=== PATIENT | male | born 1945 | race Caucasian/White ===

== ENCOUNTER 2017-04-25 08:42 | Inpatient (IN) | payer OTHER ==
[~2017-04-25] VITALS: Ht 175.3 cm; Wt 99.2 kg
[2017-04-25] MEDS ORDERED: SODIUM CHLORIDE 0.9% 1L BAG IV* STA (08:56)
[2017-04-25] MEDS ORDERED: CEFEPIME 2GM/50 ML (PMX) 50 ML IVPB STA (08:56)
[2017-04-25] MEDS ORDERED: VANCOMYCIN 1 GM (PMX) 250 ML IVPB ONE (09:00)
[2017-04-25 09:42] LABS: BASOPHIL # 0.1 10^3/ul (0.0-0.1); BASOPHILS % 0.6 % (0.0-2.0); EOSINOPHILS # 0.2 10^3/ul (0.0-0.5); EOSINOPHILS % 1.4 % (0.0-7.0); HEMATOCRIT 48.4 % (42.0-52.0); HEMOGLOBIN 16.6 g/dl (14.0-18.0); LYMPHOCYTES # 1.6 10^3/ul (0.8-2.9); LYMPHOCYTES % 15.3 % (15.0-51.0); MEAN CORPUSCULAR HEMOGLOBIN 32.4 pg (29.0-33.0); MEAN CORPUSCULAR HGB CONC 34.3 g/dl (32.0-37.0); MEAN CORPUSCULAR VOLUME 94.5 fl (82.0-101.0); MEAN PLATELET VOLUME 10.4 fl (7.4-10.4); MONOCYTES % 9.8 % (0.0-11.0); NEUTROPHIL # 7.7 10^3/ul (1.6-7.5); NEUTROPHILS % 72.6 % (39.0-77.0); PLATELET COUNT 227 10^3/UL (140-415); RED BLOOD COUNT 5.12 10^6/ul (4.70-6.10); RED CELL DISTRIBUTION WIDTH 14.5 % (11.5-14.5); WHITE BLOOD COUNT 10.5 10^3/ul (4.8-10.8)
--- NOTE | 2017-04-25 09:50 | RADRPT ---
PROCEDURE: XR Chest. CLINICAL INDICATION: Sepsis TECHNIQUE: AP Portable chest. COMPARISON: No pertinent prior examinations were submitted for comparison. FINDINGS: Lordotic view was obtained. The cardiomediastinal silhouette is within normal limits. The aortic arch is calcified. The right he midiaphragm is elevated. There are views bilateral reticular densities.. No pleural effusion or pneu mothorax is seen. Bilateral acromioclavicular joint DJD and right shoulder calcific tendinosis are visualized. IMPRESSION: Elevated right hemidiaphragm. Diffuse interstitial infiltrates or edema. Physician Mary Jo Date Time Electronically viewed and signed by Physician Mary Jo on 04/25/2017 09:50 CS/
[2017-04-25 10:06] LABS: INR 0.95; PARTIAL THROMBOPLASTIN TIME 29.9 Sec (25.0-35.0); PROTIME 12.7 Sec (12.2-14.2)
[2017-04-25 10:07] LABS: ADD UMIC NO; UR ASCORBIC ACID NEGATIVE (NEGATIVE); UR BILIRUBIN (Dip) NEGATIVE (NEGATIVE); UR BLOOD (Dip) NEGATIVE (NEGATIVE); UR CLARITY CLEAR (CLEAR); UR COLOR YELLOW (YELLOW); UR GLUCOSE (Dip) 2+ mg/dL (NEGATIVE); UR KETONES (Dip) NEGATIVE (NEGATIVE); UR LEUKOCYTE ESTERASE (Dip) NEGATIVE Leu/ul (NEGATIVE); UR NITRITE (Dip) NEGATIVE (NEGATIVE); UR SPECIFIC GRAVITY (Dip) 1.017 (1.003-1.030); UR TOTAL PROTEIN (Dip) NEGATIVE (NEGATIVE); UR UROBILINOGEN (Dip) NEGATIVE (NEGATIVE)
[2017-04-25 10:10] LABS: ALANINE AMINOTRANSFERASE 43 IU/L (13-69); ALBUMIN 4.3 g/dl (3.3-4.9); ALBUMIN/GLOBULIN RATIO 0.97; ALKALINE PHOSPHATASE 143 IU/L (42-121); ANION GAP 17 (8-16); ASPARTATE AMINO TRANSFERASE 45 IU/L (15-46); BILIRUBIN,INDIRECT 0.3 mg/dl (0-1.1); BILIRUBIN,TOTAL 0.3 mg/dl (0.2-1.3); BLOOD UREA NITROGEN 14 mg/dl (7-20); CALCIUM 9.9 mg/dl (8.4-10.2); CARBON DIOXIDE 29 mmol/L (21-31); CHLORIDE 101 mmol/L (97-110); CREATININE 0.69 mg/dl (0.61-1.24); GLUCOSE 202 mg/dl (70-220); POTASSIUM 4.8 mmol/L (3.5-5.1); SODIUM 142 mmol/L (135-144); TOTAL PROTEIN 8.7 g/dl (6.1-8.1)
[2017-04-25 10:24] LABS: TROPONIN-I < 0.012 ng/ml (0.00-0.12)
[2017-04-25] MEDS ORDERED: ACETAMINOPHEN 325 MG TAB PO PRN ×2 (10:30→12:00)
[2017-04-25] MEDS ORDERED: ONDANSETRON 4 MG INJ IV PRN ×2 (10:30→12:00)
[2017-04-25] MEDS ORDERED: LANT3I SC (11:00)
[2017-04-25] MEDS ORDERED: ZOLP10TA5 PO (11:00)
[2017-04-25] MEDS ORDERED: MIRT7.5T8 PO (11:01)
[2017-04-25] MEDS ORDERED: METF1000 PO (11:01)
[2017-04-25] MEDS ORDERED: PIOG45TA6 PO (11:02)
[2017-04-25] MEDS ORDERED: QUET25TA33 PO ×2 (11:03)
[2017-04-25] MEDS ORDERED: SERT50TA PO (11:04)
[2017-04-25] MEDS ORDERED: GLYB5TAB3 PO (11:05)
[2017-04-25] MEDS ORDERED: ERGO2000 PO (11:07)
[2017-04-25] MEDS ORDERED: HYDR-902 PO (11:08)
[2017-04-25] MEDS ORDERED: ASPI-664 PO (11:08)
[2017-04-25] MEDS ORDERED: GABA300C16 PO (11:09)
[2017-04-25] MEDS ORDERED: CELE100C PO (11:09)
[2017-04-25] MEDS ORDERED: LOSA25TA5 PO (11:10)
[2017-04-25] MEDS ORDERED: DOCUSATE SODIUM 100 MG CAP PO PRN (12:00)
[2017-04-25] MEDS ORDERED: ACETAMINOPHEN 650 MG SUPP PR PRN (12:00)
[2017-04-25] MEDS ORDERED: ALBUTEROL/IPRATROPIUM (NEB) 3 ML AMP HHN PRN (12:00)
[2017-04-25] MEDS ORDERED: VANCOMYCIN IV PER PHARMACY XX SCH (12:00)
[2017-04-25] MEDS ORDERED: NACL 0.9% 3 ML SYG IV SCH (12:00)
[2017-04-25] MEDS: INSULIN ASPART [NOVOLOG] 3 ML PEN SC SCH ×3 (12:00→21:45)
--- NOTE | 2017-04-25 12:04 | HP ---
Date/Time of Note Date/Time of Note DATE: 04/25/17 TIME: 11:57 Assessment/Plan VTE Prophylaxis VTE Prophylaxis Intervention: LMWH Assessment/Plan Chief Complaint/Hosp Course 72-year-old male, who was transferred from assisted living facility for evaluation of cough and congestion that started early this morning. 1. Pneumonia, likely community-acquired. Chest x-ray reviewed. -Admit as inpatient -We will start patient on Levaquin+Vanco, [id number] and as needed bronchodilators. -Obtain sputum and blood culture. 2. Sepsis with #1. -Repeat lactate. -Continue IVFs, borad-spectrum abx and follow-up with pancultures. 3. Essential hypertension. Stable. -Resume home medications. 4. Type 2 diabetes. - Hold oral agents at this time. Patient will be started on Accu-Cheks/insulin sliding scale in-house.Resume Lantus at 35 units HS and titrate as indicated. -Obtain A1c. -Carb- controlled diet 5. Depression/insomnia. -Resume home medications. 6. Obesity -Lifestyle modification/weight reduction advised. -Obtain lipid panel and treat accordingly. DVT prophylaxis: Lovenox. The rest of the management depend on hospital course. Approximately 60 minutes was spent on this history and physical. Patient was seen in collaboration with Dr. Navarrete. Problems: HPI/ROS Admit Date/Time Admit Date/Time Hx of Present Illness This is a 72-year-old with male with a past medical history of essential hypertension, type 2 diabetes, diabetic neuropathy, depression, insomnia, who was brought from an assisted living facility for evaluation of onset of productive cough and congestion with malaise that started last night. Patient denied any fever, chills, hemoptysis, orthopnea, PND, diaphoresis, night sweats , chest pain, palpitation, or shortness of breath. He also denied nausea, vomiting, abdominal pain, headache, confusion, loss of consciousness, weakness or other focal deficits. Patient denied any recent travel or contact with sick people. In the emergency room, his initial labs were unremarkable except for elevated lactate 4.3. He also had temperature 99.7 with HR 112BPM. BP relatively stable. Initial urinalysis was negative for any infection. Chest x-ray showed diffuse interstitial infiltrates. Blood and urine cultures were sent from emergency room. He was also treated with cefepime and vancomycin in the emergency room. Patient was then admitted for further management. ROS A 12 point review of system was assessed and is negative other than what is mentioned in the HPI. PMH/Family/Social Past Medical History See HPI Past Surgical History See HPI Social History Former smoker, who quit 22 years ago. Former alcohol abuse. No Drug abuse history. Smoking Status: Former smoker Exam/Review of Systems Vital Signs Vitals Vital Signs Date Time Temp Pulse Resp B/P Pulse Ox O2 Delivery O2 Flow Rate FiO2 04/25/17 11:26 112 20 91/74 98 Nasal Cannula 2.0 04/25/17 08:52 99.7 Exam Exam General: Well developed, obese male, not in any acute distress . HEENT: Normocephalic, Atraumatic, No laceration or hematoma; Eyes: PEERL, Conjunctiva clear, Anicteric sclera Neck: Supple without any lymphadenopathy, nontender, no JVD, no carotid bruits, trachea midline, no thyromegaly Cardiac: S1, S2 auscultated, regular rhythm and rate, no mumurs or gallop Pulmonary: Mild expiratory wheezing on right upper and lower lobes. Normal respiratory effort. GI: Abdomen normal to inspection. Soft, non tender, non- distended, no masses, no rebound tenderness or guarding. Bowel sounds active on all four quadrants Genitourinary: Deferred Extremities: No cyanosis, clubbing, or edema. Pulses [2+] bilaterally. Full ROM on all four extremities. No focal weakness appreciated. Neurologic: Alert to person, place, time, and situation. Affect appropriate, intact sensation. Skin: Clean,dry, and intact. No ecchymosis, no rashes, or lesions Labs Result Diagram: 04/25/1791404/25/17914 Medications Medications Current Medications Levofloxacin/ Dextrose (Levaquin 500mg/ D5W 100 ml (Pmx)) 100 ml @ 100 mls/hr Q24H IVPB ; Start 04/25/17 at 12:00; Status UNV Aspirin (Halfprin) 81 mg DAILY PO ; Start 04/26/17 at 09:00; Status UNV Celecoxib (Celebrex) 100 mg BID PO ; Start 04/25/17 at 21:00; Status UNV Gabapentin (Neurontin) 300 mg BID PO ; Start 04/25/17 at 21:00; Status UNV Losartan Potassium (Cozaar) 25 mg DAILY PO ; Start 04/26/17 at 09:00; Status UNV Mirtazapine (Remeron) 7.5 mg HS PO ; Start 04/25/17 at 21:00; Status UNV Quetiapine Fumarate (Seroquel) 12.5 mg QAM PO ; Start 04/26/17 at 09:00; Status UNV Quetiapine Fumarate (Seroquel) 25 mg HS PO ; Start 04/25/17 at 21:00; Status UNV Sertraline HCl (Zoloft) 50 mg DAILY PO ; Start 04/26/17 at 09:00; Status UNV Zolpidem Tartrate (Ambien) 10 mg QHS PRN PO INSOMNIA; Start 04/25/17 at 12:00 ; Status UNV Miscellaneous Information 2,000 unit DAILY PO ; Start 04/26/17 at 09:00; Status UNV ILIA RAMOS NP Apr 25, 2017 12:04 ILIA RAMOS NP Apr 25, 2017 12:04
[2017-04-25] MEDS ORDERED: GLUCOSE GEL 15 GRAM TUBE PO PRN ×4 (12:30→14:30)
[2017-04-25] MEDS ORDERED: DEXTROSE 50% 50 ML SYRINGE IV PRN ×4 (12:30→14:30)
[2017-04-25] MEDS ORDERED: GLUCAGON 1 MG INJ IM PRN ×2 (12:30→14:30)
[2017-04-25] MEDS ORDERED: GLUCOSE GEL 15 GRAM TUBE BUCCAL PRN ×2 (12:30→14:30)
--- NOTE | 2017-04-25 12:51 | ERD ---
ER Documentation Chief Complaint Chief Complaint productive cough and congestion with no distress. mild sob for a few days. HPI Patient is a 72-year-old male with hypertension and diabetes who presents with cough and congestion. He was brought in by ambulance. This cough started last night. The patient has dark brown phlegm. He feels exhausted. He was at the retirement facility for the past 4-5 days. He is speaking in full sentences. He said that he has had decreased p.o. intake. He has no fevers. Upon review of old medical records this is the patient's first visit to the emergency department. ROS All systems reviewed and are negative except as per history of present illness. Medications Home Meds Reported Medications Losartan Potassium* (Losartan Potassium*) 25 Mg Tablet, 25 MG PO DAILY, TAB 04/25/17 Gabapentin* (Gabapentin*) 300 Mg Capsule, 300 MG PO BID, #60 CAP 04/25/17 Celecoxib* (Celebrex*) 100 Mg Capsule, 100 MG PO BID, CAP 04/25/17 Aspirin (Low Dose Aspirin) 81 Mg Tablet.dr, 81 MG PO DAILY, #30 TAB 04/25/17 Hydrocodone/Acetaminophen (Blackey 10-325 Tablet) 1 Each Tablet, 1 EACH PO BID Y for PAIN, TAB 04/25/17 Ergocalciferol (Vitamin D2) (VITAMIN D2) 2,000 Unit Tablet, 2000 UNIT PO DAILY, TAB 04/25/17 Glyburide* (Glyburide*) 5 Mg Tablet, 5 MG PO BID, #60 TAB 04/25/17 Sertraline Hcl* (Zoloft*) 50 Mg Tablet, 50 MG PO DAILY, #30 TAB 04/25/17 Quetiapine Fumarate* (Quetiapine Fumarate*) 25 Mg Tablet, 25 MG PO HS, TAB 04/25/17 Quetiapine Fumarate* (Quetiapine Fumarate*) 25 Mg Tablet, 12.5 MG PO QAM, TAB 04/25/17 Pioglitazone Hcl* (Actos*) 45 Mg Tablet, 45 MG PO DAILY, #30 TAB 04/25/17 Mirtazapine* (Mirtazapine*) 7.5 Mg Tablet, 7.5 MG PO HS, TAB 04/25/17 Metformin Hcl* (Metformin Hcl*) 1,000 Mg Tablet, 1000 MG PO WITH BREAKFAST DINNE , #30 TAB 04/25/17 Insulin Glargine* (Lantus*) 100 Unit/Ml Soln, 32 UNIT SC BID, #1 VIAL 04/25/17 Zolpidem Tartrate* (Zolpidem Tartrate*) 10 Mg Tablet, 10 MG PO QHS Y for INSOMNIA, #30 TAB 04/25/17 Allergies Allergies: Coded Allergies: Penicillins (Verified Allergy, Intermediate, 04/25/17) PMhx/Soc History of Surgery: Yes (tonsilectomy,appy) Anesthesia Reaction: No Hx Neurological Disorder: No Hx Respiratory Disorders: No Hx Cardiac Disorders: Yes (htn) Hx Psychiatric Problems: No Hx Miscellaneous Medical Probl: No Hx Alcohol Use: No Hx Substance Use: No Hx Tobacco Use: No Smoking Status: Former smoker FmHx Family History: diabetes Physical Exam Vitals Vital Signs Date Time Temp Pulse Resp B/P Pulse Ox O2 Delivery O2 Flow Rate FiO2 04/25/17 11:26 112 20 91/74 98 Nasal Cannula 2.0 04/25/17 09:46 Nasal Cannula 2.0 04/25/17 09:45 Nasal Cannula 2 04/25/17 08:52 99.7 112 20 138/102 94 Physical Exam Const: Mild distress secondary to cough Head: Atraumatic Eyes: Normal Conjunctiva ENT: Normal External Ears, Nose and Mouth. Neck: Full range of motion..~ No meningismus. Resp: Decreased breath sounds bilaterally Cardio: Tachycardic rate without murmur Abd: Soft, non tender, non distended. Normal bowel sounds Skin: No petechiae or rashes Back: No midline or flank tenderness Ext: No cyanosis, or edema Neur: Awake and alert Psych: Normal Mood and Affect Result Diagram: 04/25/1715 04/25/1715 Results 24 hrs Laboratory Tests Test 04/25/17 09:14 04/25/17 09:15 Urine Color YELLOW Urine Clarity CLEAR Urine pH 7.0 Urine Specific [place] 1.017 Urine Ketones NEGATIVEmg/dL Urine Nitrite NEGATIVEmg/dL Urine Bilirubin NEGATIVEmg/dL Urine Urobilinogen NEGATIVEmg/dL Urine Leukocyte Esterase NEGATIVELeu/ul Urine Hemoglobin NEGATIVEmg/dL Urine Glucose 2+mg/dL Urine Total Protein NEGATIVEmg/dl White Blood Count 10.510^3/ul Red Blood Count 5.1210^6/ul Hemoglobin 16.6g/dl Hematocrit 48.4% Mean Corpuscular Volume 94.5fl Mean Corpuscular Hemoglobin 32.4pg Mean Corpuscular Hemoglobin Concent 34.3g/dl Red Cell Distribution Width 14.5% Platelet Count 24583^3/UL Mean Platelet Volume 10.4fl Neutrophils % 72.6% Lymphocytes % 15.3% Monocytes % 9.8% Eosinophils % 1.4% Basophils % 0.6% Nucleated Red Blood Cells % 0.0/100WBC Neutrophils # 7.710^3/ul Lymphocytes # 1.610^3/ul Monocytes # 1.010^3/ul Eosinophils # 0.210^3/ul Basophils # 0.110^3/ul Nucleated Red Blood Cells # 0.010^3/ul Prothrombin Time 12.7Sec Prothrombin Time Ratio 1.0 INR International Normalized Ratio 0.95 Activated Partial Thromboplast Time 29.9Sec Sodium Level 142mmol/L Potassium Level 4.8mmol/L Chloride Level 101mmol/L Carbon Dioxide Level 29mmol/L Anion Gap 17 Blood Urea Nitrogen 14mg/dl Creatinine 0.69mg/dl Glucose Level 202mg/dl Lactic Acid Level 4.3mmol/L Calcium Level 9.9mg/dl Total Bilirubin 0.3mg/dl Direct Bilirubin 0.00mg/dl Indirect Bilirubin 0.3mg/dl Aspartate Amino Transf (AST/SGOT) 45IU/L Alanine Aminotransferase (ALT/SGPT) 43IU/L Alkaline Phosphatase 143IU/L Troponin I < 0.012ng/ml Total Protein 8.7g/dl Albumin 4.3g/dl Globulin 4.40g/dl Albumin/Globulin Ratio 0.97 Current Medications Medications (Trade) Dose Ordered Sig/Daniel Route PRN Reason Start Time Stop Time Status Last Admin Dose Admin Sodium Chloride 2640 ml 2,640 ml BOLUS OVER 2 HOURS STAT IV* 04/25/17 08:56 04/25/17 08:57 DC 04/25/17 09:33 Cefepime HCl 50 ml @ 100 mls/hr ONCE STAT IVPB 04/25/17 08:56 04/25/17 09:25 DC 04/25/17 09:35 Vancomycin HCl (Vancocin) 250 ml @ 125 mls/hr ONCE ONCE IVPB 04/25/17 09:00 04/25/17 10:59 DC 04/25/17 09:59 Ondansetron HCl (Zofran Inj) 4 mg BRIDGE ORDER PRN IV NAUSEA AND/OR VOMITING 04/25/17 10:30 04/26/17 10:29 Acetaminophen (Tylenol Tab) 650 mg ER BRIDGE PRN PO MILD PAIN/FEVER 04/25/17 10:30 04/26/17 10:29 Vancomycin HCl VANCOMYCIN PER PHARMACY PER PROTOCOL XX 04/25/17 12:00 UNV Levofloxacin/ Dextrose (Levaquin 500mg/ D5W 100 ml (Pmx)) 100 ml @ 100 mls/hr Q24H IVPB 04/25/17 13:00 Aspirin (Halfprin) 81 mg DAILY PO 04/26/17 09:00 UNV Celecoxib (Celebrex) 100 mg BID PO 04/25/17 21:00 UNV Gabapentin (Neurontin) 300 mg BID PO 04/25/17 21:00 UNV Losartan Potassium (Cozaar) 25 mg DAILY PO 04/26/17 09:00 UNV Mirtazapine (Remeron) 7.5 mg HS PO 04/25/17 21:00 UNV Quetiapine Fumarate (Seroquel) 12.5 mg QAM PO 04/26/17 09:00 UNV Quetiapine Fumarate (Seroquel) 25 mg HS PO 04/25/17 21:00 UNV Sertraline HCl (Zoloft) 50 mg DAILY PO 04/26/17 09:00 UNV Zolpidem Tartrate (Ambien) 10 mg QHS PRN PO INSOMNIA 04/25/17 12:00 UNV Miscellaneous Information 2000 unit 2,000 unit DAILY PO 04/26/17 09:00 UNV Sodium Chloride (NS) 1,000 ml @ 75 mls/hr [id number] IV 04/25/17 13:00 IV Flush (NS 3 ml) 3 ml PER PROTOCOL IV 04/25/17 12:00 Ondansetron HCl (Zofran Inj) 4 mg Q6H PRN IV NAUSEA AND/OR VOMITING 04/25/17 12:00 UNV Acetaminophen (Tylenol Tab) 650 mg Q6H PRN PO PAIN LEVEL 1-3 OR FEVER 04/25/17 12:00 Acetaminophen (Tylenol Supp) 650 mg Q6H PRN [place] PAIN LEVEL 1-3 OR FEVER 04/25/17 12:00 Morphine Sulfate (morphine) 2 mg Q4H PRN IV SEVERE PAIN LEVEL 7-10 04/25/17 12:00 Docusate Sodium (Colace) 100 mg Q12H PRN PO CONSTIPATION 04/25/17 12:00 UNV Enoxaparin Sodium (Lovenox) 40 mg DAILY SC 04/26/17 09:00 UNV Miscellaneous Information (* Miscellaneous Pharmacy Order) Discontinue current oral sulfonylur... ONCE ONCE XX 04/25/17 12:00 04/25/17 12:12 DC Diagnostic Test (Pha) (Accu-Chek) 1 ea 02 XX 04/26/17 02:00 UNV Miscellaneous Information (* Miscellaneous Pharmacy Order) HYPOGLYCEMIA PROTOCOL w... ONCE ONCE XX 04/25/17 12:00 04/25/17 12:12 DC Insulin Aspart (Novolog Insulin Pen) NOVOLOG *MILD* ALGORITHM WITH MEALS BEDTIME SC 04/25/17 12:00 Miscellaneous Information (* Miscellaneous Pharmacy Order) Discontinue all previ... ONCE ONCE XX 04/25/17 12:00 04/25/17 12:12 DC Albuterol/ Ipratropium (Duoneb) 3 ml Q4H RESP THERAPY HHN 04/25/17 13:00 Albuterol/ Ipratropium (Duoneb) 3 ml Q2H RESP THERAPY PRN HHN SOB/WHEEZING 04/25/17 12:00 Miscellaneous Information 1 ea NOTE XX 04/25/17 12:30 Glucose (Glutose) 15 gm Q15M PRN PO DECREASED GLUCOSE 04/25/17 12:30 Glucose (Glutose) 22.5 gm Q15M PRN PO DECREASED GLUCOSE 04/25/17 12:30 Dextrose (D50w Syringe) 25 ml Q15M PRN IV DECREASED GLUCOSE 04/25/17 12:30 Dextrose (D50w Syringe) 50 ml Q15M PRN IV DECREASED GLUCOSE 04/25/17 12:30 Glucagon (Glucagen) 1 mg Q15M PRN IM DECREASED GLUCOSE 04/25/17 12:30 Glucose (Glutose) 15 gm Q15M PRN BUCCAL DECREASED GLUCOSE 04/25/17 12:30 Procedures/MDM Chest x-ray shows possible pneumonia per radiology. EKG read by me: Rate/Rhythm: Sinus tachycardia at a rate of 112 Intervals: Normal Impression: Sinus tachycardia without ischemia Admit MDM: Patient's infectious symptoms have not stabilized and the patient is at risk of rapid decompensation. The patient will be admitted for careful hydration, antibiotic therapy, and infectious source control. Severe Sepsis criteria: Infectious source: Pneumonia End organ damage indicated by: Lactate greater than 2 Sepsis Management: Time of recognition of sepsis: Upon arrival Within 3 hours of recognition: Blood cultures x 2 before broad-spectrum antibiotics: Yes 30 ml/kg NS bolus Completed Initial lactate 4.3 Repeat lactate pending Time of recognition of septic shock: 914 Septic Shock Assessment: Any lactic acid > 4.0 yes Persistent hypotension (SBP < 90 or 40 mmHg drop, MAP < 65) despite 30 mL/kg IV fluid bolus No Volume Re-assessment for Septic Shock (post 30 ml/kg bolus): Temp 99.7, BP 91/74, HR 112, RR 20, Pox 98% on 2 L nasal cannula Heart tachycardic rate Lungs decreased breath sounds bilaterally Skin Warm & dry Cap Refill Less than 2 seconds Peripheral pulses Radially present Persistent Hypotension Treatment: Comfort care No Central line Not Required Vasopressor started Not required I considered further perfusion assessment with CVP measurement, SCVO2, bedside ultrasound volume assessment, passive leg raise, trial of further fluid bolus. And proceeded with 30 ml/kg fluid bolus of NSS, broad spectrum antibiotics, and admission. Accepting Care Team Current data and ongoing care discussed. Admitting Physician: Dr. Quarles from the panel team Rubber Covering Machine Operator(s): None Outstanding Data: Culture results and repeat lactic acid Critical Care: Critical care time 35 minutes excluding all billable procedures Emergent fluid management while maintaining close respiratory support. Provision of immediate and broad-spectrum antibiotic therapy. Simultaneous assessment for possible sources in order to direct targeted therapy. Consideration for invasive and chemical support to prevent cardiopulmonary collapse. Departure Diagnosis: Primary Impression: Septic shock Additional Impression: Pneumonia Pneumonia type: due to unspecified organism Laterality: unspecified laterality Lung location: unspecified part of lung Qualified Code: J18.9 - Pneumonia due to infectious organism, unspecified laterality, unspecified part of lung Condition: Serious VADIM LITTLE MD Apr 25, 2017 12:51
[2017-04-25] MEDS: LEVOFLOXACIN 500MG/D5W (PMX) 100 ML IVPB SCH (13:10)
[2017-04-25] MEDS: SOD CHLORIDE 0.9% 1,000 ML IV SCH (13:11)
[2017-04-25] MEDS: ALBUTEROL/IPRATROPIUM (NEB) 3 ML AMP HHN SCH ×3 (13:19→21:20)
[2017-04-25] MEDS ORDERED: VANCOMYCIN 1.75 GM in NS 500 ML IVPB SCH (15:00)
[2017-04-25 16:37] VITALS: BP 166/89; RESP 18
[2017-04-25 16:56] VITALS: Ht 175.3 cm; Wt 99.2 kg
[2017-04-25 20:00] VITALS: BP 129/77; PULSE 100; RESP 18
[2017-04-25] MEDS: GABAPENTIN 300 MG CAP PO SCH ×2 (20:31→20:45)
[2017-04-25] MEDS: morphine 2 MG INJ IV PRN (20:31)
[2017-04-25] MEDS: MIRTAZAPINE 15 MG TAB PO SCH ×3 (20:31→21:00)
[2017-04-25] MEDS: QUETIAPINE 25 MG TAB PO SCH ×3 (20:32→21:00)
[2017-04-25] MEDS: CELECOXIB 100 MG CAP PO SCH (20:49)
[2017-04-25] MEDS: INSULIN GLARGINE [LANtus] 3 ML PEN SC SCH (21:45)
[2017-04-25] MEDS: VANCOMYCIN 1.5 GM in SOD CHLORIDE 0.9% 250 ML IVPB SCH (23:55)
[2017-04-26] MEDS: ALBUTEROL/IPRATROPIUM (NEB) 3 ML AMP HHN SCH ×6 (01:37→20:30)
[2017-04-26 02:00] VITALS: BP 123/68; PULSE 98; RESP 18
[2017-04-26] MEDS: ACCU-CHEK XX SCH (02:00)
[2017-04-26] MEDS: SOD CHLORIDE 0.9% 1,000 ML IV SCH ×2 (02:20→15:38)
[2017-04-26 06:32] LABS: BASOPHILS % 0.6 % (0.0-2.0); EOSINOPHILS # 0.1 10^3/ul (0.0-0.5); EOSINOPHILS % 1.6 % (0.0-7.0); HEMATOCRIT 43.8 % (42.0-52.0); HEMOGLOBIN 14.5 g/dl (14.0-18.0); LYMPHOCYTES # 1.9 10^3/ul (0.8-2.9); LYMPHOCYTES % 26.9 % (15.0-51.0); MEAN CORPUSCULAR HGB CONC 33.1 g/dl (32.0-37.0); MEAN CORPUSCULAR VOLUME 93.8 fl (82.0-101.0); MEAN PLATELET VOLUME 10.3 fl (7.4-10.4); MONOCYTE # 0.9 10^3/ul (0.3-0.9); MONOCYTES % 13.4 % (0.0-11.0); NEUTROPHILS % 57.2 % (39.0-77.0); PLATELET COUNT 189 10^3/UL (140-415); RED BLOOD COUNT 4.67 10^6/ul (4.70-6.10); RED CELL DISTRIBUTION WIDTH 14.7 % (11.5-14.5); WHITE BLOOD COUNT 6.9 10^3/ul (4.8-10.8)
[2017-04-26 07:07] LABS: ALBUMIN 3.5 g/dl (3.3-4.9); ALBUMIN/GLOBULIN RATIO 0.97; BILIRUBIN,INDIRECT 0.3 mg/dl (0-1.1); BILIRUBIN,TOTAL 0.3 mg/dl (0.2-1.3); CALCIUM 8.8 mg/dl (8.4-10.2); CREATININE 0.66 mg/dl (0.61-1.24); MAGNESIUM 1.6 mg/dl (1.7-2.5); PHOSPHORUS 3.4 mg/dl (2.5-4.9); POTASSIUM 3.6 mmol/L (3.5-5.1); TOTAL PROTEIN 7.1 g/dl (6.1-8.1)
[2017-04-26 07:27] LABS: THYROID STIMULATING HORMONE 0.985 MIU/L (0.465-4.680)
[2017-04-26 08:09] VITALS: BP 142/80; RESP 16
[2017-04-26] MEDS: SERTRALINE 50 MG TAB PO SCH (08:14)
[2017-04-26] MEDS: CELECOXIB 100 MG CAP PO SCH ×2 (08:14→20:52)
[2017-04-26] MEDS: CHOLECALCIFEROL 2,000 UNIT CAP PO SCH (08:16)
[2017-04-26] MEDS: QUETIAPINE 25 MG TAB PO SCH ×2 (08:16→20:52)
[2017-04-26] MEDS: ASPIRIN (EC) 81 MG TAB PO SCH (08:17)
[2017-04-26] MEDS: LOSARTAN 25 MG TAB PO SCH (08:17)
[2017-04-26] MEDS: INSULIN ASPART [NOVOLOG] 3 ML PEN SC SCH ×4 (08:22→21:01)
[2017-04-26] MEDS: ENOXAPARIN 40 MG/0.4 ML SYG SC SCH (08:27)
[2017-04-26] MEDS ORDERED: INFLUENZA VIRUS VACCINE 0.5 ML SYG IM* ONE (09:00)
[2017-04-26] MEDS: VANCOMYCIN 1.5 GM in SOD CHLORIDE 0.9% 250 ML IVPB SCH (10:51)
[2017-04-26] MEDS: morphine 2 MG INJ IV PRN ×2 (10:52→18:39)
[2017-04-26] MEDS: LEVOFLOXACIN 500MG/D5W (PMX) 100 ML IVPB SCH (14:24)
[2017-04-26 15:35] VITALS: BP 135/61; RESP 16
[2017-04-26] MEDS ORDERED: MAGNESIUM CHLORIDE (SR) 64 MG TAB PO ONE (16:30)
--- NOTE | 2017-04-26 16:59 | PN ---
Date/Time of Note Date/Time of Note DATE: 04/26/17 TIME: 16:57 Assessment/Plan VTE Prophylaxis VTE Prophylaxis Intervention: LMWH Lines/Catheters IV Catheter Type (from [facility]): Peripheral IV Assessment/Plan Chief Complaint/Hosp Course 1. Sepsis with tachycardia and tachypnea with suspected CAP. The patient had lactic acidosis upon admission. The patient was started on empiric antibiotics. The patient's nicholas cultures remained negative. Therefore, will de- escalate antibiotics. Patient's chest x-ray showed diffuse interstitial infiltrates. The patient will also be ruled out for any underlying cardiac etiology including congestive heart failure. 2. Essential hypertension. Will continue the patient on antihypertensives. 3. Type 2 diabetes mellitus. Hemoglobin A1c 10.1. Continue sliding scale insulin with basal insulin and pre-meal insulin. 4. Dyslipidemia. Will reinforce a low-cholesterol diet. 5. Obesity. BMI of 32.3 kg/m. Weight reduction will be advised. 6. Depression. Continue mood stabilizers. 7. Fluids, electrolytes, and nutrition. Carbohydrate controlled, low- cholesterol diet. 8. DVT prophylaxis. Subcutaneous Lovenox. 9. Plan. De-escalate antibiotics. Obtain 2D echocardiogram. Start gentle diuresis. Case discussed with Dr. Navarrete. Problems: Subjective 24 Hr Interval Summary Free Text/Dictation Denies any dyspnea. Complains of cough. Exam/Review of Systems Vital Signs Vitals Vital Signs Date Time Temp Pulse Resp B/P Pulse Ox O2 Delivery O2 Flow Rate FiO2 04/26/17 15:35 98.4 104 16 135/61 93 04/26/17 13:27 21 04/26/17 05:52 Nasal Cannula 2.0 Intake and Output 04/25/17 04/25/17 04/26/17 15:00 23:00 07:00 Intake Total 320 ml 950 ml Output Total 200 ml Balance 120 ml 950 ml Exam General: Obese 72 year-old male lying in bed in no apparent distress. HEENT: Normocephalic, atraumatic. Eyes: Anicteric sclerae, conjunctivae clear. ENT: Nasal septum midline, oral mucosa moist. Neck supple, JVD noticed. Respiratory: Bilaterally diminished breath sounds. Bilateral crackles at the bases. Cardiovascular: S1, S2 heard. No murmurs or gallops. Abdomen: Soft, nontender, and nondistended. Bowel sounds positive in all 4 quadrants. Genitourinary: Deferred. Extremities: No cyanosis, no clubbing, no edema. Peripheral pulses palpable. Neurologic: Cranial nerves II through XII grossly intact. The patient is awake, alert, and oriented. Skin: Normal skin turgor. Scaly, erythematous skin around the nose. Results Result Diagram: 04/26/17 0505 04/26/17 0505 Results 24 hrs Laboratory Tests Test 04/25/17 17:31 04/25/17 20:27 04/25/17 20:57 04/25/17 22:13 Bedside Glucose 109 190 184 197 Test 04/26/17 05:05 04/26/17 08:13 04/26/17 11:53 White Blood Count 6.9 # Red Blood Count 4.67 L Hemoglobin 14.5 Hematocrit 43.8 Mean Corpuscular Volume 93.8 Mean Corpuscular Hemoglobin 31.0 Mean Corpuscular Hemoglobin Concent 33.1 Red Cell Distribution Width 14.7 H Platelet Count 189 Mean Platelet Volume 10.3 Neutrophils % 57.2 Lymphocytes % 26.9 Monocytes % 13.4 H Eosinophils % 1.6 Basophils % 0.6 Nucleated Red Blood Cells % 0.0 Neutrophils # 4.0 Lymphocytes # 1.9 Monocytes # 0.9 Eosinophils # 0.1 Basophils # 0.0 Nucleated Red Blood Cells # 0.0 Sodium Level 140 Potassium Level 3.6 Chloride Level 106 Carbon Dioxide Level 27 Anion Gap 11 Blood Urea Nitrogen 10 Creatinine 0.66 Glucose Level 128 # Hemoglobin A1c 10.1 H Calcium Level 8.8 Phosphorus Level 3.4 Magnesium Level 1.6 L Total Bilirubin 0.3 Direct Bilirubin 0.00 Indirect Bilirubin 0.3 Aspartate Amino Transf (AST/SGOT) 35 Alanine Aminotransferase (ALT/SGPT) 47 Alkaline Phosphatase 96 Total Protein 7.1 # Albumin 3.5 Globulin 3.60 H Albumin/Globulin Ratio 0.97 Triglycerides Level 162 H Cholesterol Level 138 LDL Cholesterol, Calculated 83 HDL Cholesterol 23 L Cholesterol/HDL Ratio 6.0 Thyroid Stimulating Hormone (TSH) 0.985 Bedside Glucose 144 220 Medications Medications Current Medications Levofloxacin/ Dextrose (Levaquin 500mg/ D5W 100 ml (Pmx)) 100 ml @ 100 mls/hr Q24H IVPB Last administered on 04/26/17t 14:24; Admin Dose 100 MLS/HR; Start 04/25/17 at 13:00 Aspirin (Halfprin) 81 mg DAILY PO Last administered on 04/26/17 08:17; Admin Dose 81 MG; Start 04/26/17 at 09:00 Celecoxib (Celebrex) 100 mg BID PO Last administered on 04/26/17 08:14; Admin Dose 100 MG; Start 04/25/17 at 21:00 Gabapentin (Neurontin) 300 mg BID PO Last administered on 04/25/17 20:45; Admin Dose 300 MG; Start 04/25/17 at 21:00 Losartan Potassium (Cozaar) 25 mg DAILY PO Last administered on 04/26/17 08: 17; Admin Dose 25 MG; Start 04/26/17 at 09:00 Mirtazapine (Remeron) 7.5 mg HS PO Last administered on 04/25/17 20:45; Admin Dose 7.5 MG; Start 04/25/17 at 21:00 Quetiapine Fumarate (Seroquel) 12.5 mg QAM PO Last administered on 04/26/17 08:16; Admin Dose 12.5 MG; Start 04/26/17 at 09:00 Quetiapine Fumarate (Seroquel) 25 mg HS PO Last administered on 04/25/17 20: 43; Admin Dose 25 MG; Start 04/25/17 at 21:00 Sertraline HCl (Zoloft) 50 mg DAILY PO Last administered on 04/26/17 08:14; Admin Dose 50 MG; Start 04/26/17 at 09:00 Zolpidem Tartrate (Ambien) 10 mg QHS PRN PO INSOMNIA; Start 04/25/17 at 12:00 Cholecalciferol (Vitamin D) 2,000 unit DAILY PO Last administered on 08:16; Admin Dose 2,000 UNIT; Start 04/26/17 at 09:00 Ondansetron HCl (Zofran Inj) 4 mg Q6H PRN IV NAUSEA AND/OR VOMITING; Start at 12:00 Acetaminophen (Tylenol Tab) 650 mg Q6H PRN PO PAIN LEVEL 1-3 OR FEVER; Start 04/25/17 at 12:00 Acetaminophen (Tylenol Supp) 650 mg Q6H PRN [place] PAIN LEVEL 1-3 OR FEVER; Start 04/25/17 at 12:00 Morphine Sulfate (morphine) 2 mg Q4H PRN IV SEVERE PAIN LEVEL 7-10 Last administered on 04/26/17 10:52; Admin Dose 2 MG; Start 04/25/17 at 12:00 Docusate Sodium (Colace) 100 mg Q12H PRN PO CONSTIPATION; Start 04/25/17 at 12 :00 Enoxaparin Sodium (Lovenox) 40 mg DAILY SC Last administered on 04/26/17 08: 27; Admin Dose 40 MG; Start 04/26/17 at 09:00 Diagnostic Test (Pha) (Accu-Chek) 1 ea 02 XX ; Start 04/26/17 at 02:00 Miscellaneous Information 1 ea NOTE XX ; Start 04/25/17 at 12:30 Glucose (Glutose) 15 gm Q15M PRN PO DECREASED GLUCOSE; Start 04/25/17 at 12:30 Glucose (Glutose) 22.5 gm Q15M PRN PO DECREASED GLUCOSE; Start 04/25/17 at 12: 30 Dextrose (D50w Syringe) 25 ml Q15M PRN IV DECREASED GLUCOSE; Start 04/25/17 at 12:30 Dextrose (D50w Syringe) 50 ml Q15M PRN IV DECREASED GLUCOSE; Start 04/25/17 at 12:30 Glucagon (Glucagen) 1 mg Q15M PRN IM DECREASED GLUCOSE; Start 04/25/17 at 12: 30 Glucose (Glutose) 15 gm Q15M PRN BUCCAL DECREASED GLUCOSE; Start 04/25/17 at 12:30 Insulin Glargine (Lantus) 35 unit HS SC Last administered on 04/25/17 21:45; Admin Dose 35 UNIT; Start 04/25/17 at 21:00 DAWNA HARRY NP Apr 26, 2017 16:59 DAWNA HARRY NP Apr 26, 2017 16:59
[2017-04-26] MEDS: FUROSEMIDE 20 MG INJ IV SCH (18:02)
[2017-04-26] MEDS: GABAPENTIN 300 MG CAP PO SCH (20:52)
[2017-04-26] MEDS: MIRTAZAPINE 15 MG TAB PO SCH (20:52)
[2017-04-26] MEDS: INSULIN GLARGINE [LANtus] 3 ML PEN SC SCH (21:01)
[2017-04-26] MEDS: ZOLPIDEM 5 MG TAB PO PRN (23:10)
[2017-04-27] MEDS: ALBUTEROL/IPRATROPIUM (NEB) 3 ML AMP HHN SCH ×6 (01:18→20:20)
[2017-04-27 02:00] VITALS: BP 108/77; PULSE 97; RESP 18
[2017-04-27] MEDS: ACCU-CHEK XX SCH (02:00)
[2017-04-27 06:18] LABS: BASOPHIL # 0.1 10^3/ul (0.0-0.1); BASOPHILS % 0.8 % (0.0-2.0); EOSINOPHILS # 0.1 10^3/ul (0.0-0.5); EOSINOPHILS % 1.9 % (0.0-7.0); HEMATOCRIT 43.4 % (42.0-52.0); LYMPHOCYTES # 1.4 10^3/ul (0.8-2.9); LYMPHOCYTES % 21.3 % (15.0-51.0); MEAN CORPUSCULAR HEMOGLOBIN 31.9 pg (29.0-33.0); MEAN CORPUSCULAR HGB CONC 34.6 g/dl (32.0-37.0); MEAN CORPUSCULAR VOLUME 92.3 fl (82.0-101.0); MONOCYTE # 0.9 10^3/ul (0.3-0.9); NEUTROPHILS % 61.8 % (39.0-77.0); PLATELET COUNT 183 10^3/UL (140-415); RED CELL DISTRIBUTION WIDTH 14.1 % (11.5-14.5); WHITE BLOOD COUNT 6.4 10^3/ul (4.8-10.8)
[2017-04-27] MEDS: FUROSEMIDE 20 MG INJ IV SCH (06:20)
[2017-04-27 06:47] LABS: MAGNESIUM 1.6 mg/dl (1.7-2.5)
[2017-04-27 06:51] LABS: CALCIUM 8.6 mg/dl (8.4-10.2); CREATININE 0.61 mg/dl (0.61-1.24); POTASSIUM 3.6 mmol/L (3.5-5.1)
[2017-04-27 07:24] VITALS: BP 131/82; RESP 16
[2017-04-27] MEDS: INSULIN ASPART [NOVOLOG] 3 ML PEN SC SCH ×5 (08:12→21:06)
[2017-04-27] MEDS: ASPIRIN (EC) 81 MG TAB PO SCH (08:23)
[2017-04-27] MEDS: CELECOXIB 100 MG CAP PO SCH ×2 (08:23→20:59)
[2017-04-27] MEDS: QUETIAPINE 25 MG TAB PO SCH ×2 (08:23→20:59)
[2017-04-27] MEDS: GABAPENTIN 300 MG CAP PO SCH ×2 (08:23→21:00)
[2017-04-27] MEDS: CHOLECALCIFEROL 2,000 UNIT CAP PO SCH (08:24)
[2017-04-27] MEDS: SERTRALINE 50 MG TAB PO SCH (08:24)
[2017-04-27] MEDS: LOSARTAN 25 MG TAB PO SCH (08:25)
[2017-04-27] MEDS: ENOXAPARIN 40 MG/0.4 ML SYG SC SCH (08:28)
--- NOTE | 2017-04-27 09:15 | RADRPT ---
PROCEDURE: XR Chest. CLINICAL INDICATION: Shortness of breath. TECHNIQUE: Single frontal view. COMPARISON: 04/25/2017. FINDINGS: There is diffuse interstitial disease bilaterally with associated volume loss. There is mild elevati on of the right hemidiaphragm. The heart size is normal. There is no pleural effusion. There is no pneumothorax. IMPRESSION: 1. Diffuse interstitial disease bilaterally at volume loss, unchanged. 2. Mild elevation of the right hemidiaphragm. RPTAT: QQ .Jori Hyatt MD, MD Date Time Electronically viewed and signed by .Jori Hyatt MD, MD on 04/27/2017 09:14 .R/
[2017-04-27] MEDS ORDERED: MAGNESIUM SULFATE 2 GM/50 ML 50 ML IVPB ONE (09:30)
--- NOTE | 2017-04-27 10:10 | PN ---
Date/Time of Note Date/Time of Note DATE: 04/27/17 TIME: 10:09 Assessment/Plan VTE Prophylaxis VTE Prophylaxis Intervention: LMWH Lines/Catheters IV Catheter Type (from [facility]): Peripheral IV Assessment/Plan Chief Complaint/Hosp Course 1. Sepsis with tachycardia and tachypnea with suspected CAP. The patient had lactic acidosis upon admission. Patient's repeat chest x-ray showed diffuse interstitial infiltrates. Will obtain a chest CT to rule out atypical causes. The patient will also be ruled out for any underlying cardiac etiology including congestive heart failure. 2. Essential hypertension. Will continue the patient on antihypertensives. 3. Type 2 diabetes mellitus. Hemoglobin A1c 10.1. Continue sliding scale insulin with basal insulin and pre-meal insulin. 4. Dyslipidemia. Will reinforce a low-cholesterol diet. 5. Obesity. BMI of 32.3 kg/m. Weight reduction will be advised. 6. Depression. Continue mood stabilizers. 7. Fluids, electrolytes, and nutrition. Carbohydrate controlled, low- cholesterol diet. 8. DVT prophylaxis. Subcutaneous Lovenox. 9. Plan. Await 2D echocardiogram. Obtain chest CT to further evaluate the bilateral infiltrates. Replete magnesium. Case discussed with Dr. Navarrete. Problems: Subjective 24 Hr Interval Summary Free Text/Dictation Continues to have a nonproductive cough. Exam/Review of Systems Vital Signs Vitals Vital Signs Date Time Temp Pulse Resp B/P Pulse Ox O2 Delivery O2 Flow Rate FiO2 04/27/17 10:00 101 20 97 21 04/27/17 07:24 98.8 131/82 04/27/17 02:00 Room Air 04/26/17 05:52 2.0 Intake and Output 04/26/17 04/26/17 04/27/17 15:00 23:00 07:00 Intake Total 550 ml 1375 ml 120 ml Output Total 1450 ml 400 ml Balance 550 ml -75 ml -280 ml Exam General: Obese 72 year-old male lying in bed in no apparent distress. HEENT: Normocephalic, atraumatic. Eyes: Anicteric sclerae, conjunctivae clear. ENT: Nasal septum midline, oral mucosa moist. Neck supple, JVD noticed. Respiratory: Bilaterally diminished breath sounds. Bilateral crackles at the bases. Cardiovascular: S1, S2 heard. No murmurs or gallops. Abdomen: Soft, nontender, and nondistended. Bowel sounds positive in all 4 quadrants. Genitourinary: Deferred. Extremities: No cyanosis, no clubbing, no edema. Peripheral pulses palpable. Neurologic: Cranial nerves II through XII grossly intact. The patient is awake, alert, and oriented. Skin: Normal skin turgor. Scaly, erythematous skin around the nose. Results Result Diagram: 04/27/17 0539 04/27/17 0539 Results 24 hrs Laboratory Tests Test 04/26/17 11:53 04/26/17 17:18 04/26/17 20:51 04/27/17 02:37 Bedside Glucose 220 196 246 H 212 Test 04/27/17 05:39 04/27/17 08:08 White Blood Count 6.4 Red Blood Count 4.70 Hemoglobin 15.0 Hematocrit 43.4 Mean Corpuscular Volume 92.3 Mean Corpuscular Hemoglobin 31.9 Mean Corpuscular Hemoglobin Concent 34.6 Red Cell Distribution Width 14.1 Platelet Count 183 Mean Platelet Volume 10.0 Neutrophils % 61.8 Lymphocytes % 21.3 Monocytes % 14.0 H Eosinophils % 1.9 Basophils % 0.8 Nucleated Red Blood Cells % 0.0 Neutrophils # 4.0 Lymphocytes # 1.4 Monocytes # 0.9 Eosinophils # 0.1 Basophils # 0.1 Nucleated Red Blood Cells # 0.0 Sodium Level 138 Potassium Level 3.6 Chloride Level 102 Carbon Dioxide Level 25 Anion Gap 15 Blood Urea Nitrogen 11 Creatinine 0.61 Glucose Level 215 Calcium Level 8.6 Phosphorus Level 3.0 Magnesium Level 1.6 L B-Type Natriuretic Peptide 239 H Bedside Glucose 210 Medications Medications Current Medications Levofloxacin/ Dextrose (Levaquin 500mg/ D5W 100 ml (Pmx)) 100 ml @ 100 mls/hr Q24H IVPB Last administered on 04/26/17 14:24; Admin Dose 100 MLS/HR; Start 04/25/17 at 13:00 Aspirin (Halfprin) 81 mg DAILY PO Last administered on 04/27/17 08:23; Admin Dose 81 MG; Start 04/26/17 at 09:00 Celecoxib (Celebrex) 100 mg BID PO Last administered on 04/27/17 08:23; Admin Dose 100 MG; Start 04/25/17 at 21:00 Gabapentin (Neurontin) 300 mg BID PO Last administered on 04/27/17 08:23; Admin Dose 300 MG; Start 04/25/17 at 21:00 Losartan Potassium (Cozaar) 25 mg DAILY PO Last administered on 04/27/17 08: 25; Admin Dose 25 MG; Start 04/26/17 at 09:00 Mirtazapine (Remeron) 7.5 mg HS PO Last administered on 04/26/17 20:52; Admin Dose 7.5 MG; Start 04/25/17 at 21:00 Quetiapine Fumarate (Seroquel) 12.5 mg QAM PO Last administered on 04/27/17 08:23; Admin Dose 12.5 MG; Start 04/26/17 at 09:00 Quetiapine Fumarate (Seroquel) 25 mg HS PO Last administered on 04/26/17 20: 52; Admin Dose 25 MG; Start 04/25/17 at 21:00 Sertraline HCl (Zoloft) 50 mg DAILY PO Last administered on 04/27/17 08:24; Admin Dose 50 MG; Start 04/26/17 at 09:00 Zolpidem Tartrate (Ambien) 10 mg QHS PRN PO INSOMNIA Last administered on 04/26 23:10; Admin Dose 10 MG; Start 04/25/17 at 12:00 Cholecalciferol (Vitamin D) 2,000 unit DAILY PO Last administered on 08:24; Admin Dose 2,000 UNIT; Start 04/26/17 at 09:00 Ondansetron HCl (Zofran Inj) 4 mg Q6H PRN IV NAUSEA AND/OR VOMITING; Start at 12:00 Acetaminophen (Tylenol Tab) 650 mg Q6H PRN PO PAIN LEVEL 1-3 OR FEVER; Start 04/25/17 at 12:00 Acetaminophen (Tylenol Supp) 650 mg Q6H PRN MD PAIN LEVEL 1-3 OR FEVER; Start 04/25/17 at 12:00 Morphine Sulfate (morphine) 2 mg Q4H PRN IV SEVERE PAIN LEVEL 7-10 Last administered on 04/26/17 18:39; Admin Dose 2 MG; Start 04/25/17 at 12:00 Docusate Sodium (Colace) 100 mg Q12H PRN PO CONSTIPATION; Start 04/25/17 at 12 :00 Enoxaparin Sodium (Lovenox) 40 mg DAILY SC Last administered on 04/27/17 08: 28; Admin Dose 40 MG; Start 04/26/17 at 09:00 Diagnostic Test (Pha) (Accu-Chek) 1 ea 02 XX ; Start 04/26/17 at 02:00 Miscellaneous Information 1 ea NOTE XX ; Start 04/25/17 at 12:30 Glucose (Glutose) 15 gm Q15M PRN PO DECREASED GLUCOSE; Start 04/25/17 at 12:30 Glucose (Glutose) 22.5 gm Q15M PRN PO DECREASED GLUCOSE; Start 04/25/17 at 12: 30 Dextrose (D50w Syringe) 25 ml Q15M PRN IV DECREASED GLUCOSE; Start 04/25/17 at 12:30 Dextrose (D50w Syringe) 50 ml Q15M PRN IV DECREASED GLUCOSE; Start 04/25/17 at 12:30 Glucagon (Glucagen) 1 mg Q15M PRN IM DECREASED GLUCOSE; Start 04/25/17 at 12: 30 Glucose (Glutose) 15 gm Q15M PRN BUCCAL DECREASED GLUCOSE; Start 04/25/17 at 12:30 Insulin Glargine 35 unit 35 unit HS SC Last administered on 04/26/17t 21:01; Admin Dose 35 UNIT; Start 04/25/17 at 21:00 Magnesium Sulfate (Magnesium Sulfate 2 Gm/50 ml) 50 ml @ 25 mls/hr ONCE ONCE IVPB ; Start 04/27/17 at 09:30; Stop 04/27/17 at 11:29 DAWNA HARRY NP Apr 27, 2017 10:10 DAWNA HARRY NP Apr 27, 2017 10:10
[2017-04-27] MEDS: BENZONATATE 100 MG CAP PO SCH ×2 (13:00→20:59)
[2017-04-27] MEDS: LEVOFLOXACIN 500MG/D5W (PMX) 100 ML IVPB SCH (13:31)
[2017-04-27 16:09] VITALS: BP 153/69; RESP 16
--- NOTE | 2017-04-27 17:12 | RADRPT ---
PROCEDURE: CT Chest without contrast. CLINICAL INDICATION: Interstitial lung disease TECHNIQUE: CT scan of the chest without contrast was performed on a multidetector high-resolution CT scanner. Coronal and sagittal reformatted images were obtained from the axial source images. One or more of the following dose reduction techniques were used: Automated exposure control, adjustme nt of the mA and/or kV according to patient size and use of iterative reconstruction technique. The total exam CTDI equals 15.9 mGy and the total exam DLP equals June 1941 mGy-cm. COMPARISON: Chest radiograph performed earlier the same day, 04/25/2017 FINDINGS: Extensive areas of peripherally base intralobular septal thickening, microcystic honeycombing and tr action bronchiectasis are seen in the upper, mid and lower lung zones with upper lung zone predomina nce. Scant ground-glass opacities are seen in the bilateral upper lung zones There is no pulmonary infiltrate, pulmonary nodules or mass lesion. There is no evidence of pleural effusion, pneumothorax or pulmonary edema. The central tracheobronchial tree is clear. There is shotty mediastinal and left hilar adenopathy with lymph nodes measuring up to 7 mm in short axis. The vascular structures of the mediastinum are normal in course and caliber. Mild aortic vascular calcifications and coronary artery calcifications are present. The heart size is normal, without pericardial thickening or effusion. The axillary regions, subpectoral regions, and supraclavicular regions are unremarkable and without evidence of adenopathy. Limited imaging of the upper abdomen reveals no acute abnormality. The osseous structures are remarkable for degenerative spondylosis of the spine. No osteolytic or osteoblastic lesion is detected. IMPRESSION: 1. Diffuse interlobular septal thickening, peripherally based honeycombing and traction bronchiecta sis with upper and middle lung zone predominance. Differential diagnosis includes and NSIP and UIP. 2. Shotty mediastinal and left hilar adenopathy. 3. Moderate atherosclerotic coronary artery and peripheral vascular disease. No mass, lymphadenopat hy, or focal acute infiltrate is identified. 4. Subtle ground-glass infiltrates in bilateral upper lung zones. RPTAT: QQ .Hank Alonso MD, MD Date Time Electronically viewed and signed by .Hank Alonso MD, MD on 04/27/2017 17:12 .M/
[2017-04-27] MEDS: morphine 2 MG INJ IV PRN (18:52)
[2017-04-27 19:51] VITALS: BP 142/84; RESP 20
[2017-04-27] MEDS: ZOLPIDEM 5 MG TAB PO PRN (20:59)
[2017-04-27] MEDS ORDERED: INSULIN GLARGINE [LANtus] 3 ML PEN SC SCH (21:00)
[2017-04-27] MEDS: MIRTAZAPINE 15 MG TAB PO SCH (21:00)
[2017-04-28] MEDS: ALBUTEROL/IPRATROPIUM (NEB) 3 ML AMP HHN SCH ×6 (00:10→20:11)
[2017-04-28 01:39] VITALS: BP 106/68; RESP 20
[2017-04-28] MEDS: ACCU-CHEK XX SCH (02:00)
[2017-04-28 06:16] LABS: BASOPHILS % 0.7 % (0.0-2.0); EOSINOPHILS # 0.2 10^3/ul (0.0-0.5); EOSINOPHILS % 4.2 % (0.0-7.0); HEMATOCRIT 43.9 % (42.0-52.0); HEMOGLOBIN 14.8 g/dl (14.0-18.0); LYMPHOCYTES # 2.3 10^3/ul (0.8-2.9); LYMPHOCYTES % 40.7 % (15.0-51.0); MEAN CORPUSCULAR HEMOGLOBIN 31.8 pg (29.0-33.0); MEAN CORPUSCULAR HGB CONC 33.7 g/dl (32.0-37.0); MEAN CORPUSCULAR VOLUME 94.2 fl (82.0-101.0); MEAN PLATELET VOLUME 10.1 fl (7.4-10.4); MONOCYTE # 0.6 10^3/ul (0.3-0.9); MONOCYTES % 10.5 % (0.0-11.0); NEUTROPHIL # 2.5 10^3/ul (1.6-7.5); NEUTROPHILS % 43.6 % (39.0-77.0); PLATELET COUNT 198 10^3/UL (140-415); RED BLOOD COUNT 4.66 10^6/ul (4.70-6.10); RED CELL DISTRIBUTION WIDTH 14.1 % (11.5-14.5); WHITE BLOOD COUNT 5.7 10^3/ul (4.8-10.8)
[2017-04-28 06:33] LABS: MAGNESIUM 1.9 mg/dl (1.7-2.5); PHOSPHORUS 3.4 mg/dl (2.5-4.9)
[2017-04-28 06:42] LABS: CALCIUM 8.7 mg/dl (8.4-10.2); CREATININE 0.71 mg/dl (0.61-1.24)
[2017-04-28 07:16] VITALS: BP 139/75; RESP 20
[2017-04-28] MEDS: CELECOXIB 100 MG CAP PO SCH ×2 (08:26→20:18)
[2017-04-28] MEDS: SERTRALINE 50 MG TAB PO SCH (08:27)
[2017-04-28] MEDS: LOSARTAN 25 MG TAB PO SCH (08:27)
[2017-04-28] MEDS: GABAPENTIN 300 MG CAP PO SCH ×2 (08:27→20:17)
[2017-04-28] MEDS: BENZONATATE 100 MG CAP PO SCH ×3 (08:27→20:18)
[2017-04-28] MEDS: ASPIRIN (EC) 81 MG TAB PO SCH (08:27)
[2017-04-28] MEDS: CHOLECALCIFEROL 2,000 UNIT CAP PO SCH (08:27)
[2017-04-28] MEDS: QUETIAPINE 25 MG TAB PO SCH ×2 (08:30→20:18)
[2017-04-28] MEDS: ENOXAPARIN 40 MG/0.4 ML SYG SC SCH (08:40)
[2017-04-28] MEDS: INSULIN ASPART [NOVOLOG] 3 ML PEN SC SCH ×7 (08:40→20:19)
[2017-04-28] MEDS: morphine 2 MG INJ IV PRN ×3 (10:03→20:19)
--- NOTE | 2017-04-28 12:10 | PN ---
Date/Time of Note Date/Time of Note DATE: 04/28/17 TIME: 12:10 Assessment/Plan VTE Prophylaxis VTE Prophylaxis Intervention: LMWH Lines/Catheters IV C[facility]ter Type (from [facility]): Peripheral IV Assessment/Plan Chief Complaint/Hosp Course 1. Status post sepsis with suspected CAP. Chest CT showed Diffuse interlobular septal thickening, peripherally based honeycombing and traction bronchiectasis with upper and middle lung zone predominance, questionable pulmonary fibrosis. -Patient with clinical improvement in symptoms. -Continue antibiotics, bronchodilators. -Pulmonary consult has been requested and we will follow-up with recommendations. 2. Essential hypertension. Stable. -Continue antihypertensives. 3. Hyperglycemia with Type 2 diabetes. A1c 10.1. -Start NPH 30 units every 12 hours. Uptitrate pre-meal aspart to 15 units 3 times daily. Continue Accu-Cheks/mild ISS. -Carb- controlled diet and diabetic education 4. Depression/insomnia. -Continue home medications. 5. Obesity -Lifestyle modification/weight reduction advised. 6. Triglyceridemia, mild. LDL within goals. -Diet modification advised. Follow-up with lipid panel in 4 weeks. 7. History of benign lung nodule Plan: Follow-up with pulmonary recommendations. Overall, patient feels improvement in symptoms. DVT prophylaxis: Lovenox. Patient was seen in collaboration with Dr. Mccracken. Problems: Subjective 24 Hr Interval Summary Free Text/Dictation Overall, patient with improvement in symptoms. He denied any cough, shortness of breath, fever or other symptoms. Patient's blood sugar has been running in the higher side. Exam/Review of Systems Vital Signs Vitals Vital Signs Date Time Temp Pulse Resp B/P Pulse Ox O2 Delivery O2 Flow Rate FiO2 04/28/17 10:21 98 20 96 21 04/28/17 07:16 97.6 139/75 04/27/17 02:00 Room Air 04/26/17 05:52 2.0 Intake and Output 04/27/17 04/27/17 04/28/17 15:00 23:00 07:00 Intake Total 150 ml 1140 ml 600 ml Output Total 1800 ml 0 ml Balance 150 ml -660 ml 600 ml Exam General: Well developed, obese male, not in any acute distress . HEENT: Normocephalic, Atraumatic, No laceration or hematoma; Eyes: PEERL, Conjunctiva clear, Anicteric sclera Neck: Supple without any lymphadenopathy, nontender, no JVD, no carotid bruits, trachea midline, no thyromegaly Cardiac: S1, S2 auscultated, regular rhythm and rate, no mumurs or gallop Pulmonary: Diminished bibasilar. Normal respiratory effort. GI: Abdomen normal to inspection. Soft, non tender, non- distended, no masses, no rebound tenderness or guarding. Bowel sounds active on all four quadrants Genitourinary: Deferred Extremities: No cyanosis, clubbing, or edema. Pulses [2+] bilaterally. Full ROM on all four extremities. No focal weakness appreciated. Neurologic: Alert to person, place, time, and situation. Affect appropriate, intact sensation. Skin: Clean,dry, and intact. No ecchymosis, no rashes, or lesions Results Result Diagram: 04/28/1751704/28/17517 Results 24 hrs Laboratory Tests Test 04/27/17 12:18 04/27/17 17:10 04/27/17 20:54 04/28/17 02:34 Bedside Glucose 353 H 262 H 244 H 208 Test 04/28/17 05:18 04/28/17 08:10 White Blood Count 5.7 Red Blood Count 4.66 L Hemoglobin 14.8 Hematocrit 43.9 Mean Corpuscular Volume 94.2 Mean Corpuscular Hemoglobin 31.8 Mean Corpuscular Hemoglobin Concent 33.7 Red Cell Distribution Width 14.1 Platelet Count 198 Mean Platelet Volume 10.1 Neutrophils % 43.6 Lymphocytes % 40.7 Monocytes % 10.5 Eosinophils % 4.2 Basophils % 0.7 Nucleated Red Blood Cells % 0.0 Neutrophils # 2.5 Lymphocytes # 2.3 Monocytes # 0.6 Eosinophils # 0.2 Basophils # 0.0 Nucleated Red Blood Cells # 0.0 Sodium Level 141 Potassium Level 4.0 Chloride Level 102 Carbon Dioxide Level 27 Anion Gap 16 Blood Urea Nitrogen 15 Creatinine 0.71 Glucose Level 230 H Calcium Level 8.7 Phosphorus Level 3.4 Magnesium Level 1.9 Bedside Glucose 237 H Medications Medications Current Medications Levofloxacin/ Dextrose (Levaquin 500mg/ D5W 100 ml (Pmx)) 100 ml @ 100 mls/hr Q24H IVPB Last administered on 04/27/17t 13:31; Admin Dose 100 MLS/HR; Start 04/25/17 at 13:00 Aspirin (Halfprin) 81 mg DAILY PO Last administered on 04/28/17 08:27; Admin Dose 81 MG; Start 04/26/17 at 09:00 Celecoxib (Celebrex) 100 mg BID PO Last administered on 04/28/17 08:26; Admin Dose 100 MG; Start 04/25/17 at 21:00 Gabapentin (Neurontin) 300 mg BID PO Last administered on 04/28/17 08:27; Admin Dose 300 MG; Start 04/25/17 at 21:00 Losartan Potassium (Cozaar) 25 mg DAILY PO Last administered on 04/28/17 08: 27; Admin Dose 25 MG; Start 04/26/17 at 09:00 Mirtazapine (Remeron) 7.5 mg HS PO Last administered on 04/27/17 21:00; Admin Dose 7.5 MG; Start 04/25/17 at 21:00 Quetiapine Fumarate (Seroquel) 12.5 mg QAM PO Last administered on 04/28/17 08:30; Admin Dose 12.5 MG; Start 04/26/17 at 09:00 Quetiapine Fumarate (Seroquel) 25 mg HS PO Last administered on 04/27/17 20: 59; Admin Dose 25 MG; Start 04/25/17 at 21:00 Sertraline HCl (Zoloft) 50 mg DAILY PO Last administered on 04/28/17 08:27; Admin Dose 50 MG; Start 04/26/17 at 09:00 Zolpidem Tartrate (Ambien) 10 mg QHS PRN PO INSOMNIA Last administered on 04/27 20:59; Admin Dose 10 MG; Start 04/25/17 at 12:00 Cholecalciferol (Vitamin D) 2,000 unit DAILY PO Last administered on 08:27; Admin Dose 2,000 UNIT; Start 04/26/17 at 09:00 Ondansetron HCl (Zofran Inj) 4 mg Q6H PRN IV NAUSEA AND/OR VOMITING; Start at 12:00 Acetaminophen (Tylenol Tab) 650 mg Q6H PRN PO PAIN LEVEL 1-3 OR FEVER; Start 04/25/17 at 12:00 Acetaminophen (Tylenol Supp) 650 mg Q6H PRN [place] PAIN LEVEL 1-3 OR FEVER; Start 04/25/17 at 12:00 Morphine Sulfate (morphine) 2 mg Q4H PRN IV SEVERE PAIN LEVEL 7-10 Last administered on 04/28/17 10:03; Admin Dose 2 MG; Start 04/25/17 at 12:00 Docusate Sodium (Colace) 100 mg Q12H PRN PO CONSTIPATION Last administered on 04/27/17 20:59; Admin Dose 100 MG; Start 04/25/17 at 12:00 Enoxaparin Sodium (Lovenox) 40 mg DAILY SC Last administered on 04/28/17 08: 40; Admin Dose 40 MG; Start 04/26/17 at 09:00 Diagnostic Test (Pha) (Accu-Chek) 1 ea 02 XX ; Start 04/26/17 at 02:00 Miscellaneous Information 1 ea NOTE XX ; Start 04/25/17 at 12:30 Glucose (Glutose) 15 gm Q15M PRN PO DECREASED GLUCOSE; Start 04/25/17 at 12:30 Glucose (Glutose) 22.5 gm Q15M PRN PO DECREASED GLUCOSE; Start 04/25/17 at 12: 30 Dextrose (D50w Syringe) 25 ml Q15M PRN IV DECREASED GLUCOSE; Start 04/25/17 at 12:30 Dextrose (D50w Syringe) 50 ml Q15M PRN IV DECREASED GLUCOSE; Start 04/25/17 at 12:30 Glucagon (Glucagen) 1 mg Q15M PRN IM DECREASED GLUCOSE; Start 04/25/17 at 12: 30 Glucose (Glutose) 15 gm Q15M PRN BUCCAL DECREASED GLUCOSE; Start 04/25/17 at 12:30 Benzonatate (Tessalon) 100 mg TID PO Last administered on 04/28/17 08:27; Admin Dose 100 MG; Start 04/27/17 at 13:00 Insulin Human NPH (Humulin N) 30 unit BID@08,20 SC ; Start 04/28/17 at 20:00 ILIA RAMOS NP Apr 28, 2017 12:10
[2017-04-28] MEDS: LEVOFLOXACIN 500 MG TAB PO SCH (13:00)
[2017-04-28 13:55] VITALS: BP 125/83; RESP 20
[2017-04-28 19:38] VITALS: BP 125/73; RESP 20
[2017-04-28] MEDS: MIRTAZAPINE 15 MG TAB PO SCH (20:18)
[2017-04-28] MEDS: NPH, HUMAN INSULIN ISOPHANE 3ML VIAL SC SCH (20:26)
[2017-04-28] MEDS ORDERED: INSULIN GLARGINE [LANtus] 3 ML PEN SC SCH (21:00)
[2017-04-28] MEDS: ZOLPIDEM 5 MG TAB PO PRN (23:03)
[2017-04-29 02:00] VITALS: BP 105/60; RESP 20
[2017-04-29] MEDS: ALBUTEROL/IPRATROPIUM (NEB) 3 ML AMP HHN SCH ×6 (02:00→20:02)
[2017-04-29] MEDS: ACCU-CHEK XX SCH (02:00)
[2017-04-29] MEDS: LEVOFLOXACIN 500 MG TAB PO SCH (05:55)
[2017-04-29 06:14] LABS: CREATININE 0.7 mg/dl (0.61-1.24); POTASSIUM 3.7 mmol/L (3.5-5.1)
[2017-04-29 07:32] VITALS: BP 109/71; RESP 20
[2017-04-29] MEDS: CELECOXIB 100 MG CAP PO SCH ×2 (08:18→21:04)
[2017-04-29] MEDS: ASPIRIN (EC) 81 MG TAB PO SCH (08:18)
[2017-04-29] MEDS: GABAPENTIN 300 MG CAP PO SCH ×2 (08:18→21:03)
[2017-04-29] MEDS: CHOLECALCIFEROL 2,000 UNIT CAP PO SCH (08:20)
[2017-04-29] MEDS: QUETIAPINE 25 MG TAB PO SCH ×2 (08:20→21:04)
[2017-04-29] MEDS: BENZONATATE 100 MG CAP PO SCH ×3 (08:20→21:04)
[2017-04-29] MEDS: LOSARTAN 25 MG TAB PO SCH (08:21)
[2017-04-29] MEDS: SERTRALINE 50 MG TAB PO SCH (08:21)
[2017-04-29] MEDS: INSULIN ASPART [NOVOLOG] 3 ML PEN SC SCH ×7 (08:42→21:00)
[2017-04-29] MEDS: NPH, HUMAN INSULIN ISOPHANE 3ML VIAL SC SCH ×2 (08:42→21:09)
[2017-04-29] MEDS: ENOXAPARIN 40 MG/0.4 ML SYG SC SCH (08:42)
--- NOTE | 2017-04-29 10:29 | PN ---
Date/Time of Note Date/Time of Note DATE: 04/29/17 TIME: 10:28 Assessment/Plan VTE Prophylaxis VTE Prophylaxis Intervention: LMWH Lines/Catheters [facility] (from [facility] Peripheral IV Assessment/Plan Chief Complaint/Hosp Course 1. Status post sepsis with suspected CAP. Chest CT showed Diffuse interlobular septal thickening, peripherally based honeycombing and traction bronchiectasis with upper and middle lung zone predominance, questionable pulmonary fibrosis. -Patient with clinical improvement in symptoms. -Continue antibiotics, bronchodilators. -Pulmonary consult has been requested and we will follow-up with recommendations. 2. Essential hypertension. Stable. -Continue antihypertensives. 3. Hyperglycemia with Type 2 diabetes. A1c 10.1.With better glycemic trends now -Continue with NPH 30 units every 12 hours. Deescalate pre-meal aspart to 8 units 3 times daily. Continue Accu-Cheks/mild ISS. -Carb- controlled diet and diabetic education 4. Depression/insomnia. -Continue home medications. 5. Obesity -Lifestyle modification/weight reduction advised. 6. Triglyceridemia, mild. LDL within goals. -Diet modification advised. Follow-up with lipid panel in 4 weeks. 7.Hx of benign lung nodule. Plan: Follow-up with pulmonary recommendations. Overall, patient feels improvement in symptoms. DVT prophylaxis: Lovenox. Patient was seen in collaboration with Dr. Mccracken. Problems: Subjective 24 Hr Interval Summary Free Text/Dictation No acute distress. Blood sugar has been stable. Exam/Review of Systems Vital Signs Vitals Vital Signs Date Time Temp Pulse Resp B/P Pulse Ox O2 Delivery O2 Flow Rate FiO2 04/29/17 08:32 102 18 93 21 04/29/17 07:32 98.1 109/71 04/27/17 02:00 Room Air 04/26/17 05:52 2.0 Intake and Output 04/28/17 04/28/17 04/29/17 15:00 23:00 07:00 Intake Total 2000 ml 1000 ml Output Total 1850 ml Balance 150 ml 1000 ml Exam General: Well developed, obese male, not in any acute distress . HEENT: Normocephalic, Atraumatic, No laceration or hematoma; Eyes: PEERL, Conjunctiva clear, Anicteric sclera Neck: Supple without any lymphadenopathy, nontender, no JVD, no carotid bruits, trachea midline, no thyromegaly Cardiac: S1, S2 auscultated, regular rhythm and rate, no mumurs or gallop Pulmonary: Diminished bibasilar. Normal respiratory effort. GI: Abdomen normal to inspection. Soft, non tender, non- distended, no masses, no rebound tenderness or guarding. Bowel sounds active on all four quadrants Genitourinary: Deferred Extremities: No cyanosis, clubbing, or edema. Pulses [2+] bilaterally. Full ROM on all four extremities. No focal weakness appreciated. Neurologic: Alert to person, place, time, and situation. Affect appropriate, intact sensation. Skin: Clean,dry, and intact. No ecchymosis, no rashes, or lesions Results Result Diagram: 04/28/1718 04/29/17 0521 Results 24 hrs Laboratory Tests Test 04/28/17 12:22 04/28/17 17:10 04/28/17 20:16 04/29/17 05:21 Bedside Glucose 228 H 112 133 Sodium Level 138 Potassium Level 3.7 Chloride Level 102 Carbon Dioxide Level 25 Anion Gap 15 Blood Urea Nitrogen 14 Creatinine 0.70 Glucose Level 133 # Calcium Level 9.0 Test 04/29/17 08:07 Bedside Glucose 153 Medications Medications Current Medications Aspirin (Halfprin) 81 mg DAILY PO Last administered on 04/29/17 08:18; Admin Dose 81 MG; Start 04/26/17 at 09:00 Celecoxib (Celebrex) 100 mg BID PO Last administered on 04/29/17 08:18; Admin Dose 100 MG; Start 04/25/17 at 21:00 Gabapentin (Neurontin) 300 mg BID PO Last administered on 04/29/17 08:18; Admin Dose 300 MG; Start 04/25/17 at 21:00 Losartan Potassium (Cozaar) 25 mg DAILY PO Last administered on 04/28/17 08: 27; Admin Dose 25 MG; Start 04/26/17 at 09:00 Mirtazapine (Remeron) 7.5 mg HS PO Last administered on 04/28/17 20:18; Admin Dose 7.5 MG; Start 04/25/17 at 21:00 Quetiapine Fumarate (Seroquel) 12.5 mg QAM PO Last administered on 04/29/17 08:20; Admin Dose 12.5 MG; Start 04/26/17 at 09:00 Quetiapine Fumarate (Seroquel) 25 mg HS PO Last administered on 04/28/17 20: 18; Admin Dose 25 MG; Start 04/25/17 at 21:00 Sertraline HCl (Zoloft) 50 mg DAILY PO Last administered on 04/29/17 08:21; Admin Dose 50 MG; Start 04/26/17 at 09:00 Zolpidem Tartrate (Ambien) 10 mg QHS PRN PO INSOMNIA Last administered on 04/28 23:03; Admin Dose 10 MG; Start 04/25/17 at 12:00 Cholecalciferol (Vitamin D) 2,000 unit DAILY PO Last administered on 08:20; Admin Dose 2,000 UNIT; Start 04/26/17 at 09:00 Ondansetron HCl (Zofran Inj) 4 mg Q6H PRN IV NAUSEA AND/OR VOMITING; Start at 12:00 Acetaminophen (Tylenol Tab) 650 mg Q6H PRN PO PAIN LEVEL 1-3 OR FEVER; Start 04/25/17 at 12:00 Acetaminophen (Tylenol Supp) 650 mg Q6H PRN [place] PAIN LEVEL 1-3 OR FEVER; Start 04/25/17 at 12:00 Morphine Sulfate (morphine) 2 mg Q4H PRN IV SEVERE PAIN LEVEL 7-10 Last administered on 04/28/17 20:19; Admin Dose 2 MG; Start 04/25/17 at 12:00 Docusate Sodium (Colace) 100 mg Q12H PRN PO CONSTIPATION Last administered on 04/27/17 20:59; Admin Dose 100 MG; Start 04/25/17 at 12:00 Enoxaparin Sodium (Lovenox) 40 mg DAILY SC Last administered on 04/29/17 08: 42; Admin Dose 40 MG; Start 04/26/17 at 09:00 Diagnostic Test (Pha) (Accu-Chek) 1 ea 02 XX ; Start 04/26/17 at 02:00 Miscellaneous Information 1 ea NOTE XX ; Start 04/25/17 at 12:30 Glucose (Glutose) 15 gm Q15M PRN PO DECREASED GLUCOSE; Start 04/25/17 at 12:30 Glucose (Glutose) 22.5 gm Q15M PRN PO DECREASED GLUCOSE; Start 04/25/17 at 12: 30 Dextrose (D50w Syringe) 25 ml Q15M PRN IV DECREASED GLUCOSE; Start 04/25/17 at 12:30 Dextrose (D50w Syringe) 50 ml Q15M PRN IV DECREASED GLUCOSE; Start 04/25/17 at 12:30 Glucagon (Glucagen) 1 mg Q15M PRN IM DECREASED GLUCOSE; Start 04/25/17 at 12: 30 Glucose (Glutose) 15 gm Q15M PRN BUCCAL DECREASED GLUCOSE; Start 04/25/17 at 12:30 Benzonatate (Tessalon) 100 mg TID PO Last administered on 04/29/17 08:20; Admin Dose 100 MG; Start 04/27/17 at 13:00 Insulin Human NPH (Humulin N) 30 unit BID@08,20 SC Last administered on 08:42; Admin Dose 30 UNIT; Start 04/28/17 at 20:00 Levofloxacin (Levaquin) 500 mg DAILY@06 PO Last administered on 04/29/17 05: 55; Admin Dose 500 MG; Start 04/28/17 at 13:00 IILA RAMOS NP Apr 29, 2017 10:29
[2017-04-29 13:31] VITALS: BP 121/75; RESP 20
--- NOTE | 2017-04-29 14:08 | RADRPT ---
Echocardiogram Report Patient Name: LILO GÓMEZ Gender: Male Date: 1945 Study Date: 27-Apr-2017 Supervisor Plasma: GILBERT Location: [id number] Ref. Physician: DAWNA HARRY Quality: Good Procedures: Transthoracic echocardiogram with complete 2D, M-Mode, and doppler examination. Indications: Evaluate Left Ventricular function. 2D/M Mode Doppler Measurement Value Normal Ranges Measurement Value Normal Ranges AoR Diam MM 3.2 cm BRANDIE Vmax 1.2 cm2 LA/Ao MM 1.2 BRANDIE VTI 1.2 cm2 LA Dimen MM 3.7 cm AV Mean Josh 1.7 m/sec LVIDd 2D 4.7 3.5 - 5.6 cm AV Mean PG 13.5 mmHg LVIDs 2D 3.3 2.1 - 4.1 cm AV Peak Josh 2.6 m/sec LVPWd 2D 1.1 0.6 - 1.1 cm AV Peak PG 26.5 mmHg IVSd 2D 1.1 0.6 - 1.1 cm AV VTI 47.2 cm EDV 2D 100.2 cm3 LVOT Mean Josh 0.8 m/sec ESV 2D 36.5 cm3 LVOT Mean PG 2.8 mmHg EF 2D 55.0 50.0 - 65.0 % LVOT Peak Josh 1.1 m/sec LVOT Diam 1.9 cm LVOT Peak PG 4.8 mmHg LVOT VTI 22.6 cm MV E Peak Josh 0.5 m/sec MV A Peak Josh 0.9 m/sec MV E/A 0.6 MV Decel [place] 3 MV E/A 0.6 TR Peak Josh 3.0 m/sec TR Peak PG 36.7 mmHg RVSP 40.0 mmHg RA Pressure 3.0 Findings Left Ventricle: Normal left ventricular systolic function. Normal left ventricular cavity size. Normal left ventricular wall thickness. Ejection fraction is visually estimated at 55 %. Right Ventricle: Normal right ventricular size. Normal right ventricular systolic function. Left Atrium: The left atrium is normal in size. Right Atrium: The right atrium is normal in size. Mitral Valve: Normal appearance of the mitral valve. Mild mitral leaflet calcification. Trace mitral regurgitation. Aortic Valve: Mild aortic stenosis. Aortic cusps appear mildly calcified. Trace aortic valve regurgitation. Tricuspid Valve: Normal appearance of the tricuspid valve. Estimated peak PA systolic pressure 40 mmHg. There is mild tricuspid regurgitation. Pulmonic Valve: Normal pulmonic valve appearance. Pericardium: Normal pericardium with no significant pericardial effusion. Aorta: Normal aortic root. IVC: Normal size and normal respiratory collapse consistent with normal right atrial pressure. Conclusions 1.Normal left ventricular systolic function. Normal left ventricular cavity size. Normal left ventricular wall thickness. Ejection fraction is visually estimated at 55 %. 2.Normal right ventricular size. Normal right ventricular systolic function. 3.The left atrium is normal in size. 4.The right atrium is normal in size. 5.Mild aortic stenosis. Trace aortic valve regurgitation. 6.Trace mitral regurgitation. 7.Estimated peak PA systolic pressure 40 mmHg. There is mild tricuspid regurgitation. 8.Normal pericardium with no significant pericardial effusion. Electronically Signed By: Ambrosio Watson 29-Apr-2017 14:07:53 -0700 Patient Name: LILO GÓMEZ Study Date: 27-Apr-2017 [id number]
[2017-04-29 21:00] VITALS: BP 120/81; RESP 20
[2017-04-29] MEDS: MIRTAZAPINE 15 MG TAB PO SCH (21:04)
[2017-04-29] MEDS: morphine 2 MG INJ IV PRN (21:22)
[2017-04-29] MEDS: ZOLPIDEM 5 MG TAB PO PRN (23:13)
[2017-04-30] MEDS: ALBUTEROL/IPRATROPIUM (NEB) 3 ML AMP HHN SCH ×3 (00:47→10:01)
[2017-04-30 02:00] VITALS: BP 102/75; RESP 20
[2017-04-30] MEDS: ACCU-CHEK XX SCH (02:00)
[2017-04-30] MEDS: LEVOFLOXACIN 500 MG TAB PO SCH (05:38)
[2017-04-30 07:37] VITALS: BP 117/59; RESP 18
[2017-04-30] MEDS: INSULIN ASPART [NOVOLOG] 3 ML PEN SC SCH ×2 (08:07→08:32)
[2017-04-30] MEDS: CHOLECALCIFEROL 2,000 UNIT CAP PO SCH (08:09)
[2017-04-30] MEDS: BENZONATATE 100 MG CAP PO SCH (08:09)
[2017-04-30] MEDS: SERTRALINE 50 MG TAB PO SCH (08:09)
[2017-04-30] MEDS: GABAPENTIN 300 MG CAP PO SCH (08:09)
[2017-04-30] MEDS: ASPIRIN (EC) 81 MG TAB PO SCH (08:10)
[2017-04-30] MEDS: CELECOXIB 100 MG CAP PO SCH (08:10)
[2017-04-30] MEDS: QUETIAPINE 25 MG TAB PO SCH (08:10)
[2017-04-30] MEDS: LOSARTAN 25 MG TAB PO SCH (08:11)
[2017-04-30] MEDS: ENOXAPARIN 40 MG/0.4 ML SYG SC SCH (08:32)
[2017-04-30] MEDS: NPH, HUMAN INSULIN ISOPHANE 3ML VIAL SC SCH (08:32)
--- NOTE | 2017-04-30 09:29 | PDOCDIS ---
Discharge Instructions CONDITION Patient Condition: Stable HOME CARE INSTRUCTIONS: Special Diet: carb control diet FOLLOW UP/APPOINTMENTS Follow-up Plan 1. Follow-up with in his office in 2 weeks. [address] [facility] [place] [address] [place] [id number] Office 2.Follow up with primary care physician in 1 week If you don't have one please let someone know, we can give you resources that may help you pick one. You may also call your insurance company to assign one to you. Review your medication list with your nurse before leaving and if you need new prescriptions please let your nurse know. I may have made changes to your home medications or given you new prescriptions, please let your primary doctor know as well. Stay compliant with your medications and report any side effects to your PCP or pharmacist. Return to the ER if you have any concerns and cannot reach your doctors or call your insurance company, they usually have a nurse that can help you. 3. Call 911 or go to the nearest emergency room if experiencing loss of consciousness, dizziness, chest pain, shortness of breath, vomiting/abdominal pain, speech difficulties, motor weakness or any unusual symptoms. ILIA RAMOS NP Apr 30, 2017 09:29
[2017-04-30] MEDS ORDERED: LEVO500T72 PO (09:32)
[2017-04-30] MEDS ORDERED: NPH,100V SC (09:32)
--- NOTE | 2017-04-30 09:42 | DS ---
Date/Time of Note Date/Time of Note DATE: 04/30/17 TIME: 09:36 Discharge Summary Admission/Discharge Info Admit Date/Time Apr 25, 2017 at 10:21 Discharge Date/Time Discharge Diagnosis 1. Status post sepsis with possible CAP. 2. Possible exacerbation of idiopathic pulmonary fibrosis 3. Essential hypertension. 4. Type 2 diabetes. A1c 10.1. 5. Depression/insomnia. 6. Obesity 7. Triglyceridemia, mild. LDL within goals. 8. Benign lung nodule. Patient Condition: Stable Consults , pulmonary medicine Procedures 04/27/2017. Chest CT. IMPRESSION: 1. Diffuse interlobular septal thickening, peripherally based honeycombing and traction bronchiectasis with upper and middle lung zone predominance. Differential diagnosis includes and NSIP and UIP. 2. Shotty mediastinal and left hilar adenopathy. 3. Moderate atherosclerotic coronary artery and peripheral vascular disease. No mass, lymphadenopathy, or focal acute infiltrate is identified. 4. Subtle ground-glass infiltrates in bilateral upper lung zones. Hospital Course This is a 72-year-old with male with a past medical history of essential hypertension, type 2 diabetes, diabetic neuropathy, depression, insomnia, and benign lung nodule for which he had undergone and completed workup in the past, who was brought from an assisted living facility for evaluation of onset of productive cough and congestion and was found with pneumonia. Patient was also in sepsis on arrival. He was admitted. Patient was treated with broad-spectrum antibiotics and as needed bronchodilators.His symptoms resolved. Sepsis resolved. Patient was continued on his home medication for underlying comorbid conditions. For diabetes, insulin dose was adjusted to NPH 30 units twice daily. His A1c was 10.1. Patient was also given diabetic education. He was also counseled on lifestyle modification and weight reduction for underlying obesity. His cultures were negative. A CT chest showed Diffuse interlobular septal thickening, peripherally based honeycombing and traction bronchiectasis with upper and middle lung zone predominance, concerning for possible pulmonary fibrosis for which he had pulmonary consultation. Patient was evaluated by and per recommendation, his dyspnea most likely secondary to exacerbation of idiopathic pulmonary fibrosis with possible community-acquired pneumonia. Recommendation was to follow-up with pulmonary medicine as outpatient for further pulmonary function tests and consideration for starting patient on pirfenidone. During the course of hospitalization, patient blood sugar remained high for which, he was started on NPH every 12 hours with glycemic control. Patient was continued on his home medication for underlying comorbid conditions. At this time, patient feels improvement in symptoms and he is back to his baseline. Patient is able to tolerate diet and activities well. There is no further inpatient workup needed and patient is medically stable for discharge with outpatient pulmonary medicine and primary care follow-up. Disposition: Home( assisted living facility). Patient was given information on outpatient follow-up with . Approximately 60 minutes was spent in coordinating the discharge on this patient. Patient was seen in collaboration with Dr. Mccracken. Home Meds Active Scripts Insulin NPH Human Isophane (Humulin N) 100 Unit/1 Ml Vial, 30 UNIT SC BID@, , #1 VIAL Okay to replace with vial if pen is not covered. Provide patient with 30 day supply of insulin syringes, needles, lancets and test strips. Patient to check blood sugar 3 times a day. Okay to substitute. Prov:ILIA RAMOS NP 04/30/17 Levofloxacin* (Levaquin*) 500 Mg Tablet, 500 MG PO DAILY@06 for 5 Days, #5 TAB Prov:ILIA RAMOS NP 04/30/17 Reported Medications Losartan Potassium* (Losartan Potassium*) 25 Mg Tablet, 25 MG PO DAILY, TAB 04/25/17 Gabapentin* (Gabapentin*) 300 Mg Capsule, 300 MG PO BID, #60 CAP 04/25/17 Celecoxib* (Celebrex*) 100 Mg Capsule, 100 MG PO BID, CAP 04/25/17 Aspirin (Low Dose Aspirin) 81 Mg Tablet.dr, 81 MG PO DAILY, #30 TAB 04/25/17 Hydrocodone/Acetaminophen ([place] 10-325 Tablet) 1 Each Tablet, 1 EACH PO BID Y for PAIN, TAB 04/25/17 Ergocalciferol (Vitamin D2) (VITAMIN D2) 2,000 Unit Tablet, 2000 UNIT PO DAILY, TAB 04/25/17 Glyburide* (Glyburide*) 5 Mg Tablet, 5 MG PO BID, #60 TAB 04/25/17 Sertraline Hcl* (Zoloft*) 50 Mg Tablet, 50 MG PO DAILY, #30 TAB 04/25/17 Quetiapine Fumarate* (Quetiapine Fumarate*) 25 Mg Tablet, 25 MG PO HS, TAB 04/25/17 Quetiapine Fumarate* (Quetiapine Fumarate*) 25 Mg Tablet, 12.5 MG PO QAM, TAB 04/25/17 Pioglitazone Hcl* (Actos*) 45 Mg Tablet, 45 MG PO DAILY, #30 TAB 04/25/17 Mirtazapine* (Mirtazapine*) 7.5 Mg Tablet, 7.5 MG PO HS, TAB 04/25/17 Metformin Hcl* (Metformin Hcl*) 1,000 Mg Tablet, 1000 MG PO WITH BREAKFAST DINNE , #30 TAB 04/25/17 Zolpidem Tartrate* (Zolpidem Tartrate*) 10 Mg Tablet, 10 MG PO QHS Y for INSOMNIA, #30 TAB 04/25/17 Discontinued Reported Medications Insulin Glargine* (Lantus*) 100 Unit/Ml Soln, 32 UNIT SC BID, #1 VIAL 04/25/17 Follow-up Plan 1. Follow-up with in his office in 2 weeks. [address] [facility] [address] [place] [id number] Office 2.Follow up with primary care physician in 1 week If you don't have one please let someone know, we can give you resources that may help you pick one. You may also call your insurance company to assign one to you. Review your medication list with your nurse before leaving and if you need new prescriptions please let your nurse know. I may have made changes to your home medications or given you new prescriptions, please let your primary doctor know as well. Stay compliant with your medications and report any side effects to your PCP or pharmacist. Return to the ER if you have any concerns and cannot reach your doctors or call your insurance company, they usually have a nurse that can help you. 3. Call 911 or go to the nearest emergency room if experiencing loss of consciousness, dizziness, chest pain, shortness of breath, vomiting/abdominal pain, speech difficulties, motor weakness or any unusual symptoms. Primary Care Provider Not On Staff Doctor Pending Labs Laboratory Tests Test 04/29/17 11:59 04/29/17 17:17 04/29/17 21:00 04/30/17 08:05 Bedside Glucose 164mg/dL (70-220) 97mg/dL (70-220) 168mg/dL (70-220) 132mg/dL (70-220) ILIA RAMOS NP Apr 30, 2017 09:42 ILIA RAMOS NP Apr 30, 2017 09:42
--- NOTE | 2017-04-30 14:03 | CONS ---
DATE OF ADMISSION: 04/25/2017 DATE OF CONSULTATION: REASON FOR CONSULTATION: Shortness of breath. Thank you, for this consultation. HISTORY OF PRESENT ILLNESS: This is a 72-year-old gentleman with a history of pulmonary fibrosis, a dmitted for increasing cough, congestion, diagnosed with community-acquired pneumonia. In addition, he has a lung nodule that had been worked up in the past, states he has no baseline exertional dysp amrik, no cough, occasional sputum production, no hemoptysis or hematemesis. He is an ex-smoker, quit smoking 20 years ago, currently not under the care of any account resolution analyst. On admission, he had an e levated lactic acidosis. This resolved with hydration. The patient was treated with broad-spectrum antibiotics states he is stable this morning. PAST MEDICAL HISTORY: Type 2 diabetes, hypertension, hyperlipidemia, idiopathic pulmonary fibrosis, ex-smoker. MEDICATIONS: Per chart. ALLERGIES: NONE. SOCIAL HISTORY: Nonsmoker, no alcohol, no history of drug use. FAMILY HISTORY: Noncontributory. SYSTEMS REVIEW: A 14-point review of systems was negative other than that mentioned above. PHYSICAL EXAMINATION: GENERAL: Well-nourished, well-developed gentleman, comfortable at rest, no acute distress. VITAL SIGNS: Currently afebrile, pulse is 80, blood pressure 117/59, O2 saturation 96% on room air. NECK: Supple. No JVD or lymphadenopathy. CARDIAC: S1, S2, no added sounds or murmurs. CHEST: He has coarse bilateral rales, right side greater than left. ABDOMEN: Soft, nontender. No guarding or rebound. EXTREMITIES: No cyanosis, clubbing, edema. NEUROLOGIC: Generalized weakness. DIAGNOSTIC DATA: Chest CT demonstrated fibrotic changes consistent with UIP, mediastinal adenopathy , mild ground-glass appearance. LABORATORY DATA: White count 5.7, hemoglobin 14.8. Chemistry within normal limits. IMPRESSION AND PLAN: Worsening dyspnea likely secondary to exacerbation of idiopathic pulmonary fib rosis and/or possible community-acquired pneumonia. Radiographically and clinically patient has imp roved, likely being discharged today. I would recommend follow up with me in the office with outpat ient pulmonary function tests and consider initiation of pirfenidone if the patient is amenable. Dictated By: JAYESH CABA/RUKHSANA Conf#: [id number] [facility]#: [id number]
== END 2017-04-30 11:55 | disposition home or self-care (01) | DRG 871 ==
LOC: E/R 08:42 → MS2 10:21
PROVIDERS: ADMIT Internal Medicine; ATTEND Internal Medicine
DX: A41.9 Sepsis, unspecified organism (principal); J18.9 Pneumonia, unspecified organism; R65.21 Severe sepsis with septic shock; E11.65 Type 2 diabetes mellitus with hyperglycemia; J84.10 Pulmonary fibrosis, unspecified; I10 Essential (primary) hypertension; Z79.4 Long term (current) use of insulin; Z79.84 Long term (current) use of oral hypoglycemic drugs; F32.9 Major depressive disorder, single episode, unspecified; G47.00 Insomnia, unspecified
CPT/HCPCS: 36415; 71010; 71250; 80048; 80053; 80061; 81003; 82962; 83036; 83605; 83735; 83880; 84100; 84443; 84484; 85025; 85610; 85730; 87040; 87081; 87086; 90686; 93005; 93306; 94640; 94664; 96374; 96375; J1940; J1650; J1815; J1956; J2270; J3370; J3475; J7030; J7040; J7050